=== PATIENT | female | born 1975 | race Asian ===

== ENCOUNTER 2017-11-26 15:02 | Emergency (ER) | payer OTHER ==
[2017-11-26] MEDS ORDERED: NS 1,000 ML IV ONE (15:11)
[2017-11-26 15:12] VITALS: PULSE 80; RESP 18; TEMP 98.1; O2SAT 99
[2017-11-26 15:18] LABS: PLATELET COUNT 216 10^3/uL (150-400)
--- NOTE | 2017-11-26 16:07 | EDPHY ---
H & P Stated Complaint: syncope Time Seen by Provider: 11/26/17 15:07 HPI/ROS: CHIEF COMPLAINT: Syncope HISTORY OF PRESENT ILLNESS: The patient presents to the ED after she experienced a syncopal episode earlier today. The patient reportedly had diarrhea prior to the episode. The patient currently denies any abdominal pain. She denies any recent travel outside the [place]. She denies any fever, cough or congestion. Additionally, the patient denies any chest pain, asymmetric calf pain/swelling or acute neurologic symptoms. The patient does report 1 prior history of positional orthostasis approximately 3 weeks ago which was self-limited. REVIEW OF SYSTEMS: A comprehensive 10 point review of systems is otherwise negative aside from elements mentioned in the history of present illness. Source: Patient Exam Limitations: No limitations - Personal History LMP (Females 10-55): 8-14 Days Ago Current Tetanus/Diphtheria Vaccine: Yes Current Tetanus Diphtheria and Acellular Pertussis (TDAP): Yes - Medical/Surgical History Hx Asthma: No Hx Chronic Respiratory Disease: No Hx Diabetes: No Hx Cardiac Disease: No Hx Renal Disease: No Hx Cirrhosis: No Hx Alcoholism: No Hx HIV/AIDS: No Hx Splenectomy or Spleen Trauma: No Other PMH: PMH: denies - Social History Smoking Status: Never smoked Constitutional: Initial Vital Signs Temperature (C) 36.7 C 11/26/17 15:09 Heart Rate 80 11/26/17 15:09 Respiratory Rate 18 11/26/17 15:09 Blood Pressure 123/75 H 11/26/17 15:09 O2 Sat (%) 99 11/26/17 15:09 O2 Delivery Mode Room Air Allergies/Adverse Reactions: Penicillins Allergy (Verified 11/26/17 15:12) Home Medications: Medication Instructions Recorded NK [No Known Home Meds] 11/26/17 Medical Decision Making - Diagnostics EKG Interpretation: EKG: Complete interpretation has been separately recorded in the [facility] archive. Summary impression: Sinus rhythm, rate 79 ED Course/Re-evaluation: ED course: The patient presents to the ED after a vasovagal episode. The patient arrived and had stable vital signs. She endorsed no symptoms of hematemesis or melena. Her EKG demonstrates no evidence of arrhythmia. The patient did receive 1 L of normal saline. She has no evidence of anemia or metabolic abnormality. The patient did undergo serial abdominal examinations by myself in the emergency department. The patient is ambulatory after receiving IV fluids without recurrent presyncope. I do believe she likely experienced a vasovagal episode. I do feel she can be discharged home with customary aftercare instructions and return precautions. Patient was ambulatory at 5:00 p.m. without acute complaints. Differential Diagnosis: Differential diagnosis considered includes vasovagal episode, arrhythmia, anemia , metabolic abnormality, ectopic - Data Points Laboratory Results: Laboratory Results 11/26/17 15:14 11/26/17 15:14 11/26/17 11/26/17 11/26/17 15:14 15:14 15:14 WBC 5.68 10^3/uL 10^3/uL (3.80-9.50) RBC 4.24 10^6/uL 10^6/uL (4.18-5.33) Hgb 10.2 g/dL L g/dL (12.6-16.3) Hct 32.6 % L % (38.0-47.0) MCV 76.9 fL L fL (81.5-99.8) MCH 24.1 pg L pg (27.9-34.1) MCHC 31.3 g/dL L g/dL (32.4-36.7) RDW 15.5 % H % (11.5-15.2) Plt Count 216 10^3/uL 10^3/uL (150-400) MPV 11.4 fL fL (8.7-11.7) Neut % (Auto) 61.0 % % (39.3-74.2) Lymph % (Auto) 29.2 % % (15.0-45.0) [place] % (Auto) 7.7 % % (4.5-13.0) Eos % (Auto) 1.4 % % (0.6-7.6) Baso % (Auto) 0.5 % % (0.3-1.7) Nucleat RBC Rel Count 0.0 % % (0.0-0.2) Absolute Neuts (auto) 3.46 10^3/uL 10^3/uL (1.70-6.50) Absolute Lymphs (auto) 1.66 10^3/uL 10^3/uL (1.00-3.00) Absolute Monos (auto) 0.44 10^3/uL 10^3/uL (0.30-0.80) Absolute Eos (auto) 0.08 10^3/uL 10^3/uL (0.03-0.40) Absolute Basos (auto) 0.03 10^3/uL 10^3/uL (0.02-0.10) Absolute Nucleated RBC 0.00 10^3/uL 10^3/uL (0-0.01) Immature Gran % 0.2 % % (0.0-1.1) Immature Gran # 0.01 10^3/uL 10^3/uL (0.00-0.10) Sodium 141 mEq/L mEq/L (135-145) Potassium 3.7 mEq/L mEq/L (3.5-5.2) Chloride 104 mEq/L mEq/L (97-110) Carbon Dioxide 24 mEq/l mEq/l (22-31) Anion Gap 13 mEq/L mEq/L (8-16) BUN 16 mg/dL mg/dL (7-23) Creatinine 0.7 mg/dL mg/dL (0.6-1.0) Estimated GFR > 60 Glucose 100 mg/dL mg/dL (70-100) Calcium 8.9 mg/dL mg/dL (8.5-10.4) Beta HCG, Qual NEGATIVE Medications Given: Discontinued Medications Sodium Chloride (Ns) 1,000 mls @ 0 mls/hr IV EDNOW ONE; Wide Open PRN Reason: Protocol Stop: 11/26/17 15:12 Last Admin: 11/26/17 15:59 Dose: 1,000 mls Departure - Departure Disposition: Home, Routine, Self-Care Clinical Impression: Vasovagal syncope, Gastroenteritis Condition: Good Instructions: Syncope (ED), Acute Diarrhea (ED) Additional Instructions: 1. Please return to the emergency department for any worsening symptoms or other concerns. 2. Your EKG and testing in the emergency department are within normal limits. 3. Please follow up with the ships equipment engineer you have been referred to if you continue to experience any ongoing symptoms of lightheadedness. Referrals: Judith Wilkes MD [Medical Doctor] - As per Instructions
[2017-11-26 16:20] VITALS: BP 110/73
--- NOTE | 2017-11-26 16:20 | CPEKG ---
Heart Rate: 79 RR Interval: 759 P-R Interval: 180 QRSD Interval: 84 QT Interval: 392 QTC Interval: 450 P [place]: 72 QRS [place]: 72 T Wave [place]: 43 EKG Severity - NORMAL ECG - EKG Impression: SINUS RHYTHM Electronically Signed By: Ernie Gao 26-Nov-2017 19:41:50
== END 2017-11-26 17:24 | disposition home or self-care (01) ==
DX: R55 Syncope and collapse (principal); K52.9 Noninfective gastroenteritis and colitis, unspecified; E86.9 Volume depletion, unspecified